=== PATIENT | female | born 1990 | race Caucasian/White ===

== ENCOUNTER 2017-11-17 17:24 | Emergency (ER) | payer OTHER ==
[~2017-11-17] VITALS: Ht 167.6 cm; Wt 115.0 kg
[~2017-11-17 17:24] MED LIST: NAPR550 PO; NO CURRENT
[2017-11-17 17:25] VITALS: BP 167/97; PULSE 100; RESP 16; TEMP 97.8; O2SAT 100
[2017-11-17] MEDS ORDERED: METO1TAB9 PO (17:37)
[2017-11-17] MEDS ORDERED: NECO1TAB PO (17:37)
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
[2017-11-17] MEDS ORDERED: KETOROLAC TROMETHAMINE 60 MG/2 ML (IM) VIAL IM ONE (18:15)
[2017-11-17] MEDS ORDERED: ORPHENADRINE INJ 60 MG/2 ML AMP IM ONE (18:15)
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
[2017-11-17] MEDS ORDERED: CYCL10TA PO (19:08)
[2017-11-17] MEDS ORDERED: IBUP1TAB7 PO (19:08)
== END 2017-11-17 19:14 | disposition home or self-care (01) ==
LOC: NEPD 17:24
DX: M54.9 Dorsalgia, unspecified (principal); M54.2 Cervicalgia; M41.9 Scoliosis, unspecified; I10 Essential (primary) hypertension; V43.52XA Car driver injured in collision with other type car in traffic accident, initial encounter; Z79.899 Other long term (current) drug therapy; Z88.0 Allergy status to penicillin
CPT/HCPCS: 72131; 96372; 99285; J1885; J2360